=== PATIENT | female | born 1970 | race Caucasian/White ===

== ENCOUNTER → 2017-01-27 | Outpatient (CLI) | payer OTHER ==
[~2017-01-27] MED LIST: AMOXICILLIN500 M2 PO; AUGMENTIN 875875 MG PO; CEFADROXIL500 M1 PO; HYDROCODONE BIT1 T11 PO; KENALOG0.1% TP; MOTRIN800 MG PO; NKHM; NORCO 5-325 TA1 EACH PO; PENICILLIN VK500 MG PO; Peridex 473 ML473 ML PO; ULTRAM50 MG PO
== END | disposition home or self-care (01) ==
LOC: US 16:25
DX: N92.1 Excessive and frequent menstruation with irregular cycle (principal); N92.6 Irregular menstruation, unspecified; Z98.51 Tubal ligation status; Z87.42 Personal history of other diseases of the female genital tract

== ENCOUNTER → 2022-09-13 | Outpatient (CLI) | payer SELFPAY | END | disposition home or self-care (01) | LOC: US 01:55 | PROVIDERS: ATTEND Nurse Practitioner Primary Care | DX: E05.90 Thyrotoxicosis, unspecified without thyrotoxic crisis or storm (principal) ==